=== PATIENT | male | born 1970 | race African-American/Black ===

== ENCOUNTER 2024-02-15 03:47 | Emergency (ER) | payer MEDICAID, SELFPAY ==
[2024-02-15 04:01] VITALS: BP 135/77; PULSE 78; RESP 20; TEMP 36.9; O2SAT 98
[2024-02-15 04:03] VITALS: PULSE 74; RESP 18; O2SAT 98; BMI 58.3
[2024-02-15 04:33] VITALS: BMI 58.4
--- NOTE | 2024-02-15 04:34 | XR_ITS ---
Examination: CT brain head without contrast. 2-D sagittal coronal reconstructions Date and time of exam:February 15, 2024 0444 hrs. Indications: Headache on the right side of the head today, history brain tumor removal 2019 CTDI: vol (mGy):56.8 DLP: (mGycm):1204 Technique: Multiple CT axial sections of the brain have been obtained, 5 mm slice thickness. Contrast has not been administered. 2-D sagittal, coronal reconstructions have been obtained Low dose protocols were performed. One or more of the following dose reduction techniques were used; automated exposure control, adjustment of the mA and/or KV according to patient size, use of iterative reconstruction technique. Findings: No significant ventricular enlargement. Intra-axial or extra-axial hemorrhage density is not seen. No mass effect or midline shift Basal cisterns are not remarkable. Fourth ventricle is midline. Cranial vault intact. Impression: Negative for acute hemorrhage, mass effect or midline shift
--- NOTE | 2024-02-15 04:34 | PD.EDRME ---
Rapid Medical Screening Exam RME Arrival date/time: 02/15/24 03:47 53 year old male present to ED for c/o of headache for 2 weeks. I have greeted and performed a focused initial assessment of this patient. A comprehensive ED assessment and evaluation of the patient, analysis of all test results, and completion of the medical decision making process will be conducted by additional ED providers. Chief Complaint: Headache Time Seen by Provider: 02/15/24 04:26 Vital signs: Vital Signs Temperature 98.4 F 02/15/24 04:01 Pulse Rate 78 02/15/24 04:01 Respiratory Rate 20 02/15/24 04:01 Blood Pressure 135/77 H 02/15/24 04:01 Pulse Oximetry (%) 98 02/15/24 04:01 Oxygen Delivery Method Room Air 02/15/24 04:01
--- NOTE | 2024-02-15 05:16 | PRELIM_ITS ---
CT scan of the head without intravenous contrast (axial sections with sagittal and coronal reformats) . February 15, 2024 0444 hoursClinical History: headache for 2 weeksFindings:No evidence of intracrani al hemorrhage, mass effect or midline shift. The ventricles and CSF spaces are unremarkable. The calv arium is unremarkable. The mastoid air cells and the visualized paranasal sinuses are clear.Impressio n:No evidence of intracranial hemorrhage, mass effect or midline shift. Report Electronically Signed By: Lewis Damon 02/15/2024 5:15:23 AM [EST]
[2024-02-15 05:26] LABS: Basophils % (Auto) 1 % (0-2.5); Eosinophils # (Auto) 0.2 Thou/mm3 (0.0-0.5); Eosinophils % (Auto) 2 % (0-10); Hematocrit 41.9 % (41.0-53.0); Hemoglobin 13.8 g/dL (13.5-16.0); Immature Granulocytes % (Auto) 1 % (0-0); Immature Granulocytes Auto 0.04 Thou/mm3 (0.00-0.00); Lymphocytes # (Auto) 2.9 Thou/mm3 (1.0-4.8); Lymphocytes % (Auto) 37 % (10-50); Mean Corpuscular HGB Conc 32.9 g/dl (31.0-37.0); Mean Corpuscular Hemoglobin 30.3 pg (25.0-35.0); Mean Corpuscular Volume 92 fL (80-100); Monocytes # (Auto) 0.6 Thou/mm3 (0.0-0.8); Monocytes % (Auto) 8 % (0-12); Neutrophils # (Auto) 4.1 Thou/mm3 (1.8-7.7); Neutrophils % (Auto) 53 % (37-80); Nucleated Red Blood Cell % 0 /100 WBC (0); Platelet Count 327 Thou/mm3 (140-440); RDW Standard Deviation 47.8 fL (35.1-43.9); Red Blood Count 4.55 Miln/mm3 (4.50-5.90); White Blood Count 7.9 Thou/mm3 (3.8-10.6)
[2024-02-15 05:33] LABS: Sed Rate (ESR) 21 mm/hr (0-20)
[2024-02-15 05:53] LABS: Alanine Aminotransferase 11 U/L (10-49); Albumin, Serum 4.7 gm/dL (3.5-5.0); Albumin/Globulin Ratio 1.6 (1.2-2.2); Alkaline Phosphatase 82 U/L (46-116); Anion Gap 8 (7-16); Aspartate Amino Transferase 12 U/L (0-34); BUN/Creatinine Ratio 15 Ratio (12-20); Bilirubin,Total 0.3 mg/dL (0.3-1.2); Blood Urea Nitrogen 20 mg/dL (9-23); C-Reactive Protein 0.5 mg/dL (0.0-0.9); Calcium 8.9 mg/dL (8.3-10.6); Calcium (Corrected) 8.9 mg/dL (8.5-10.1); Carbon Dioxide 27.9 mMol/L (20.0-31.0); Chloride 109 mMol/L (98-107); Creatinine (Component) 1.3 mg/dL (0.6-1.3); Estimated Creatinine Clearance 118.6 mL/min (>60); Globulin 2.9 gm/dL (2.3-3.5); Glucose 109 mg/dL (74-106); Osmolality,Calculated 292 (275-295); Potassium 3.9 mMol/L (3.4-5.1); Sodium 145 mMol/L (136-145); Total Protein 7.6 gm/dL (5.7-8.2); eGFR > 60 See Note
--- NOTE | 2024-02-15 06:54 | EDNOTE_ITS ---
<Statement entered by Carmen Garza MD - 02/15/24 07:09> As co-signing physician, I was present and available for consult prn. I concur with the plan and care as documented by the midlevel provider. ED Headache RME/HPI General Chief Complaint: Headache Stated Complaint: HEADACHE Time Seen by Provider: 02/15/24 04:26 Source: patient Arrival date/time: 02/15/24 03:47 53-year-old male with a history of obesity presents to the emergency room with a chief complaint of a headache x 2 weeks Mode of arrival: ambulatory Limitations: no limitations RME / HPI RME / HPI Narrative: 02/15/24 03:47 53 year old male present to ED for c/o of headache for 2 weeks. I have greeted and performed a focused initial assessment of this patient. A co mprehensive ED assessment and evaluation of the patient, analysis of all test results, and completion of the medical decision making process will be conducted by additional ED providers. Related Data Previous Rx's ?Medication ?Instructions ?Recorded doxycycline monohydrate 100 mg 100 mg PO BID 7 days #14 caps 02/15/24 capsule Allergies Allergy/AdvReac Type Severity Reaction Status Date / Time banana Allergy Verified 02/15/24 04:13 peach Allergy Verified 02/15/24 04:13 peanut Allergy Verified 02/15/24 04:13 Penicillins Allergy Verified 10/09/22 17:44 Review of Systems Review of Systems Systems Reviewed: All systems reviewed, normal except as documented Constitutional Constitutional: Reports system reviewed and no additional complaints, except as documented, Denies fatigue, Denies fever(s), Reports headache(s) and Denies weakness Eyes Eyes: Reports system reviewed and no additional complaints, except as documented, Denies blurry vision and Denies change in vision ENT Ears, Nose, Mouth, and Throat: Reports system reviewed and no additional co mplaints, except as documented, Reports otalgia, Reports headache(s), Denies nasal congestion, Reports sinus pain, Reports sinus pressure, Denies throat swelling and Denies vertigo Cardiovascular Cardiovascular: Reports system reviewed and no additional complaints, except as documented, Denies chest pain, Denies dyspnea and Denies dyspnea on exertion Respiratory Respiratory: Reports system reviewed and no additional complaints, except as documented, Denies chest congestion, Denies cough, Denies dyspnea, Denies dyspnea on exertion and Denies wheezing Gastrointestinal Gastrointestinal: Reports system reviewed and no additional complaints, except a s documented, Denies abdominal pain, Denies cramping, Denies nausea and Denies vomiting Genitourinary Genitourinary: Reports system reviewed and no additional complaints, except as documented, Denies dysuria and Denies hematuria Musculoskeletal Musculoskeletal: Reports system reviewed and no additional complaints, except as documented and Denies back pain Integumentary/Breasts Skin/Breast: Reports system reviewed and no additional complaints, except as documented and Denies wounds Neurologic Neurologic: Reports system reviewed and no additional complaints, except as documented, Denies confusion, Reports headache(s), Denies lack of coordination, Denies vertigo and Denies weakness Psychiatric Psychiatric: Reports system reviewed and no additional complaints, except as documented, Denies anxiety, Denies confusion, Denies depression, Denies paranoia, Denies suicidal ideation and Denies tactile hallucinations Endocrine Endocrine: Reports system reviewed and no additional complaints, except as documented and Denies fatigue Hematologic/Lymphatic Hematologic/Lymphatic: Reports system reviewed and no additional complaints, except as documented and Denies lymphadenopathy Allergic/Immunologic Allergic/Immunologic: Reports system reviewed and no additional complaints, except as documented, Denies throat swelling, Denies urticaria and Denies wheezing ED Exam General Limitations: Present no limitations General appearance: Present alert and in no apparent distress Head Head exam: Present atraumatic, normocephalic and normal inspection Eye Eye exam: Present normal appearance, PERRL and EOMI ENT ENT exam: Present normal exam, normal oropharynx and mucous membranes moist Neck Neck exam: Present normal inspection, full ROM and trachea midline Chest Chest inspection: Present normal inspection and symmetric chest wall rise Respiratory Respiratory exam: Present normal lung sounds bilaterally Cardiovascular Cardiovascular exam: Present regular rate, normal rhythm and normal heart sounds Abdominal Exam Abdominal exam: Present soft and normal bowel sounds Extremities Exam Extremities exam: Present normal inspection and full ROM Back Exam Back exam: Present normal inspection and full ROM Neurological Exam Neurological exam: Present alert, oriented X3 and CN II-XII intact Psychiatric Psychiatric exam: Present normal affect and normal mood Skin Skin exam: Present warm, dry, intact and normal color Course Quality Measures none Orders Category Date Time Status CT head/brain wo con Stat Exams 02/15/24 04:34 Taken CBC Stat Lab 02/15/24 05:15 Completed CMP [Comprehensive Metabolic Panel] Stat Lab 02/15/24 05:15 Completed CRP [C-Reactive Protein] Stat Lab 02/15/24 05:15 Completed ESR [Sed Rate (ESR)] Stat Lab 02/15/24 05:15 Completed Vital Signs Vital signs: Vital Signs Temperature 98.4 F 02/15/24 04:01 Pulse Rate 78 02/15/24 04:01 Respiratory Rate 20 02/15/24 04:01 Blood Pressure 135/77 H 02/15/24 04:01 Pulse Oximetry (%) 98 02/15/24 04:01 Oxygen Delivery Method Room Air 02/15/24 04:01 O2 saturation 98% within normal limits Headache MDM Narrative MDM Narrative:: 53-year-old male with a history of obesity presents to the emergency room with a chief complaint of a headache x 2 weeks clinically the patient appears nontoxic and in no apparent distress. Physical examination shows mild sinus tenderness with palpation. Patient states his headache is a 3 out of 10 but has been consistent for the last [address] of the head and brain was completed and was negative for any acute shift mass effect, hemorrhage, or midline shift. CBC and CMP were negative for any acute findings. Patient states he was also having some discomfort in his right ear. Tympanic membrane is not erythemic and nonbulging. Patient was educated to follow-up with his primary care provider and return to the emergency room for any evidence of worsening signs or symptoms Patient data External records reviewed:: [facility] previous records Clinical information provided by:: patient Social determinants that could affect healthcare access:: none Patient has the following chronic illnesses:: No chronic illness How is presenting disease/condition affected by chronic disease/condition?: no chronic disease Evaluation data The following diagnostics were reviewed and interpreted by me:: lab results and radiology exam(s) Lab and/or radiology exams considered but not ordered:: Labs and radiology exams considered and ordered Interpretation Summary: CT head and brain/no acute mass effect midline shift or hemorrhage Medications / Prescriptions Medications or Prescriptions considered but not ordered:: Rx given Medication administrations:: Rx given Consultations Consultation(s) initiated? (list below): No Diagnosis Differential diagnosis headache: migraine, tension headache, subarachnoid hemorrhage, headache and sinusitis Most likely diagnosis given after review of the tests above:: Sinusitis Admission Indicated Admission indicated?: not indicated Admission Request Was there a request for admission?: No Disposition Plan Disposition Plan: Discharge Discharge Attestation Discharge Attestation: The patient and all family members were given an opportunity to ask questions and understood the discharge instructions. Discharge instructions specifically effects, indications for sooner follow up or return to the emergency department, and the expected course of current diagnosis. Patient condition: Stable Discharge Plan Plan Patient Disposition: HOME (Self Care) Disposition Comment: Stable Prescriptions/Referrals Prescriptions/Med Rec: New doxycycline monohydrate 100 mg capsule 100 mg PO BID 7 Days Qty: 14 0RF Referrals: Keagan Adam [Primary Care Provider] - In 1 week Problem List Clinical Impression: Headache, Sinusitis Patient/Caregiver Discharge Instructions Education Materials: Self-Care for Headaches, ED Sinusitis (Antibiotic Treatm ent) Additional Instructions: Please follow-up with your primary care provider in the next [address] of your head and brain was completed and was negative for any acute find ings. Lab work was remarkable. For any evidence of worsening signs or symptoms please return to the emergency room immediately Print Language: Citizen Of [place] Stand Alone Forms: Yanna Award Info., Patient Portal Info Letter PA/LAILA Supervising Physician ALVINA/LAILA Supervising Physician: Dr. GARZA
--- NOTE | 2024-02-15 07:44 | PC.CC ---
Samantha ESTRADA was consulted by RICARDO Mae regarding ride for patient back home. LOISW arranged an Uber for the patient back home.
[2024-02-15] MEDS: KETOROLAC INJ 60 MG/2 ML VIAL 30 MG IM (07:46)
== END 2024-02-15 07:24 | disposition home or self-care (01) ==
PROVIDERS: Physician Assistant; Emergency Provider Emergency Medicine; PCP Family Medicine
DX: J32.9 Chronic sinusitis, unspecified (principal); R51.9 Headache, unspecified
CPT/HCPCS: 36415; 70450; 80053; 85025; 85652; 86140; 96372; 99284; J1885